=== PATIENT | female | born 1955 | race Caucasian/White ===

== ENCOUNTER 2025-01-29 15:18 | Outpatient (REF) | payer OTHER, SELFPAY ==
--- OUTSIDE RECORDS SUMMARY | 2025-01-29 15:23 | XMS_ITS | Data Portability ---
Author Organization [facility] Home Service Address [address] [place] [address] Assessment Encounter Date Assessment Date Assessment LastModified by Organization Details LastModified Time 09/27/2022 09/27/2022 Patient agreed and verbally consents to this audio and video Telehealth appt via a secure platform [email or web address] Not available 09/27/2022 16:00:05 08/16/2024 08/16/2024 Patient agreed and verbally consents to this audio and video Telehealth appt via a secure platform [email or web address] Not available 08/16/2024 10:56:32 01/17/2025 01/17/2025 Patient agreed and verbally consents to this audio and video Telehealth appt via a secure platform [email or web address] Not available 01/17/2025 11:54:37 Plan of Treatment Reminders Order Date Submit Date Provider Last Modified By Organization Details Last Modified Time Details Appointments NEW PROBLEM 15 2024 02:15P M DR BUTLER Not available Not available Not available Lab None recorded. Referral None recorded. Procedures None recorded. Surgeries None recorded. Imaging XR, foot, 3 or more view 2023 024 [facility], [address] [place] [address], [id number], 07/24/2024 08:20:33 XR, foot, 3 or more view 2023 024 [facility], [address] [place] [address], [id number], 07/24/2024 08:21:17 XR, hip + pelvis, bilateral , 2 view - bilateral hips 2023 024 [facility], [address] [facility], [place], [id number], 07/24/2024 08:19:44 Medication Orders doxycycli ne hyclate 100 mg tablet [address] [facility] #[id number], [address], [place], [id number], 01/17/2025 11:57:17 Medrol (Diallo) 4 mg tablets in a dose pack [address] [facility] #44989, [address], [place], [id number], 01/17/2025 11:57:19 codeine 10 mg-guaife nesin 100 mg/5 mL oral liquid [address] [facility] #[id number], [address], [place], [id number], 01/17/2025 11:57:19 prednison e 10 mg tablet [address] [facility] #60540, [address], [place], [id number], 08/16/2024 10:59:39 codeine 10 mg-guaife nesin 100 mg/5 mL oral liquid [address] [facility] #72996, [address], [place], [id number], 08/16/2024 10:59:44 Augmentin 875 mg-125 mg tablet 2023 024 [email or web address] [facility] #32490, [address], [place], [id number], 01/29/2025 14:18:43 escitalop lalo 5 mg tablet [address] [facility] #46354, [address], [place], [id number], 09/27/2022 16:07:50 lorazepam 0.[address] [facility] #72333, [address], [place], [id number], 09/27/2022 16:07:51 Patient TargetsNo targets recorded. Patient InstructionsNo instructions recorded. Reason for Referral None Reported. Results Created Date Observation Date Name Description Value Unit Range Abnormal Flag Note LastModifiedBy Organization Detail LastModifiedTime 07/23/20 24 07/23/2024 XR, hip + pelvi s, bilat eral, 2 view No observ ation record ed. [facility] [address] [place] [address], [id number], 07/24/2024 12:20:01 07/23/20 24 07/23/2024 XR, foot, 3 or more view No observ ation record ed. [facility] [address] [place], [id number], 07/24/2024 12:20:01 07/23/20 24 07/23/2024 XR, foot, 3 or more view No observ ation record ed. [facility] [address] [place] [address], [id number], 07/24/2024 12:20:01 Result Notes None recorded. Problems Name Problem SNOMED Code Status Onset Date Resolution Date Notes Provider Name and Address Organization Details Recorded Time Essential hypertens ion 57755234 Active 2018 Not Available [facility] 13:16:25 Gastroeso phageal reflux disease 181051465 Active 2018 Not Available [facility] 13:16:25 Steatotic liver disease 772494063 Active 2018 Not Available [facility] 13:16:25 Anxiety disorder 940663421 Active 2022 HARISH MONTEIRO [address] [place], [address], [facility] 3 15:59:30 Anxiety 78185778 Active 2022 HARISH MONTEIRO [address] [place] [address], [address], [facility] 3 15:59:53 Bacterial conjuncti vitis 132635809 Active 2023 HARISH MONTEIRO [address] [place] [address], [address], [facility] 4 10:33:23 Pain of bilateral hip joints 537431222362 80478 Active 2023 HARISH MONTEIRO [address] [place] [address], [address], [facility] 4 10:25:50 Pain in both feet 774955118728 58151 Active 2023 HARISH MONTEIRO [address] [place] [address], [address], [facility] 4 10:28:27 Bilateral osteoarth ritis of feet 473405862628 103 Active 2023 HARISH MONTEIRO [address] [place] [address], [address], [facility] 4 12:21:44 Acute bronchiti s 79196450 Active 2023 HARISH MONTEIRO [address] [place] [address], [address], [facility] 4 10:56:14 Cough 37664670 Active 2023 HARISH MONTEIRO [address] [place] [address], [address], [facility] 4 10:59:41 Acute infective bronchiti s 037279048 Active 2024 HARISH MONTEIRO [address] [place] [address], [address], [facility] 5 11:54:26 Psoriasis 7210000 Active 2024 Jesus Butler, DO [address] [place], [address], [facility] 5 15:08:13 Low back pain 219173526 Active 2024 Jesus Butler, DO [address] [place], [address], [facility] 5 15:09:02 Chronic pain of right upper limb 344335325553 93216 Active 2024 Jesus Butler, DO [address] [place] [address], [address], [facility] 5 15:09:14 Pain of multiple joints 07504885 Active 2024 Jesus Butler, DO [address] [place] [address], [address], [facility] 5 15:11:23 Notes:Right knee medial meni scus Problem Notes None recorded. Procedures Surgical History Date Name Laterality Status Provider Name and Address Organization Details Recorded Time 5 Date of Last Pap Smear completed Jelena Yanez [facility] 08/05/2019 09:07:04 5 Colonoscopy completed Jelena Yanez [facility] 01/22/2019 10:33:16 Imaging Results Imaging Date Name Status [facility]Modified by [facility] Details LastModified Time 07/23/2024 XR, hip + pelvis, bilateral, 2 view completed [facility] [address] [place] [address], [id number], 07/24/2024 12:20:01 07/23/2024 XR, foot, 3 or more view completed [facility] [address] [place] [address], [address], 07/24/2024 12:20:01 07/23/2024 XR, foot, 3 or more view completed [facility] [address] [place] [address], [id number], 07/24/2024 12:20:01 Procedure Notes None recorded. Medical Equipment None Reported. Allergies No known drug allergies Medications Name Sig Start Date Stop Date Status Note LastModified by Organization Details LastModified Time prednisone 10 mg tablet 40 mg x 2 days30 mg x 2 days20 mg x 2 days10 mg x 2 days active Not Available Not Available No t Available oxybutynin chloride ER 10 mg tablet,exte nded release 24 hr Take 1 tablet every day by oral route for 30 days. 11/24 completed Not Available Not Available Not Available tramadol 50 mg tablet Take 1 tablet every 6 hours by oral route for 7 days. 2024 active Not Available Not Available Not Avai lable lorazepam 0.5 mg tablet TAKE 1 TABLET BY MOUTH EVERY DAY NEEDED active Not Available Not Available No t Available erythromyci n 5 mg/gram (0.5 %) eye ointment APPLY 1 CM RIBBON INTO THE LOWER CONJUNCTI DAVIN SAC(S) IN THE AFFECTED EYE(S) BY OPHTHALMI C ROUTE 3 TIMES PER DAY active Not Available Not Available No t Available oxybutynin chloride ER 5 mg tablet,exte nded release 24 hr Take 1 tablet every day by oral route for 30 days. 08/26 completed Not Available Not Available Not Available codeine 10 mg-guaifene sin 100 mg/5 mL oral liquid TAKE 10 ML BY MOUTH EVERY 4 HOURS FOR 7 DAYS NEEDED active Not Available Not Available No t Available methylpredn isolone 4 mg tablets in a dose pack FOLLOW PACKAGE DIRECTION S active Not Available Not Available No t Available lisinopril 40 mg tablet TAKE 1 TABLET BY MOUTH EVERY DAY active Not Available Not Available No t Available fluoxetine 20 mg capsule TAKE 1 CAPSULE BY MOUTH EVERY DAY FOR 30 DAYS active Not Available Not Available No t Available doxycycline hyclate 100 mg tablet TAKE 1 TABLET BY MOUTH TWICE DAILY FOR 10 DAYS DIRECTED active Not Available Not Available No t Available amoxicillin 875 mg-potassiu m clavulanate 125 mg tablet TAKE 1 TABLET BY MOUTH TWICE DAILY 01/29 completed Not Available Not Available Not Available escitalopra m 5 mg tablet TAKE 1 TABLET BY MOUTH EVERY DAY active Not Available Not Available No t Available diclofenac 1 % topical gel APPLY 2 GRAMS TO THE AFFECTED AREA(S) BY TOPICAL ROUTE 4 TIMES PER DAY 2023 active Not Available Not Available Not Avai lable naloxone 4 mg/actuatio n nasal spray ADMINISTE R 1 SPRAY INTO ONE NOSTRIL. CALL 911. REPEAT AFTER 2-3 MIN IF NO OR MINIMAL RESPONSE 01/29 completed Not Available Not Available Not Available Afluria Qd (36 mos up)(PF)60 mcg (15 mcg x4)/0.5 mL IM syringe ADM 0.5ML IM UTD 08/12 completed Not Available Not Available Not Available Vitals Date Recorded Body height Body mass index (BMI) Body weight Heart rate Oxygen saturation Oxygen saturation in Arterial blood by Pulse oximetry Systolic blood pressure Diastolic blood pressure Provider Name and Address Organization Details Last Updated DateTime 4 154.94 cm 24.4 kg/m2 41291.7 7 g 72 /min 100 % 100 % 114 mm[Hg] 78 mm[Hg] Marileemuna Salazar [facility] 4 10:19:20 Date Recorded Body height Body mass index (BMI) Body weight Oxygen saturation Oxygen saturation in Arterial blood by Pulse oximetry Heart rate Systolic blood pressure Diastolic blood pressure Provider Name and Address Organization Details Last Updated DateTime 5 154.94 cm 23.6 kg/m2 39800.0 5 g 96 % 96 % 74 /min 106 mm[Hg] 70 mm[Hg] Radha Honeycutt [facility] 5 14:24:18 Social History Question Answer Notes LastModified by Organizat ion Details LastModified Time Tobacco Smoking Status Former Smoker Not Available [facility] 07/14/2020 03:36:24 What Was The Date Of Your Most Recent Tobacco Screening? 01/29/2025 [email or web address] Information not available 01/29/2025 Sex: Unknown Functional Status None recorded. Mental Status None recorded. Family History Nothing Reported. Medical History No medical history recorded. Gynecological History Statement/Question Response Date of Last Pap Smear 06/11/2015 Obstetrics History GPAL:G 0 P 0 0 0 0 Immunizations Vaccine Type Date Status Note Provider Nam e and Address Organization Details Recorded Time zoster, unspecified formulation 08/14/20 21 completed Jesus Butler DO [address] [facility], [place], [address], [facility] 08/16/2021 07:14:02 Pneumococcal conjugate PCV20, polysaccharide BHE298 conjugate, adjuvant, PF 07/11/20 completed Not Available [facility] 12/16/2022 03:01:06 Influenza, split virus, quadrivalent, preservative 07/11/20 22 completed Ynes cavazos [facility] 07/11/2022 13:47:44 COVID-19, mRNA, LNP-S, PF, 30 mcg/0.3 mL dose 07/11/20 completed Ynes cavazos [facility] 07/11/2022 13:48:42 zoster live 07/15/20 completed Jelena cavazos [facility] 07/16/2019 08:23:47 Influenza, split virus, quadrivalent, preservative 06/11/20 20 completed Jelena cavazos [facility] 06/12/2020 15:35:27 COVID-19 vaccine, vector-nr, rS-Ad26, PF, 0.5 mL 12/27/19 21 completed Radha cavazos [facility] 01/06/2021 15:34:38 COVID-19 vaccine, vector-nr, rS-Ad26, PF, 0.5 mL 12/06/19 21 completed Radha cavazos [facility] 01/06/2021 15:35:04 Past Encounters Encounter ID Performer Location Encounter Start Date Encounter Closed Date Diagnosis/Indication Diagnosis SNOMED-CT Code Diagnosis ICD10 Code Diagnosis Note [id number] DO [facility] [address] [facility],[place] [address] 07/15/2019 09:43:58 07/15/2019 10:17:02 Gastroesophageal reflux disease 802079809 K21.9 prilosec daily with relief Essential hypertension 64751303 I10 well controlled 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 Vitamin D deficiency 347 80321 E55.9 Screening procedure 2012 5006 Z13.9 Body mass index 25-29 - overweight 896487622 Z68.27 Active or passive immunization 324462920 Z23 [id number] DO Raman [facility] [address] [facility], [place] [address] 08/26/2019 10:26:47 08/26/2019 10:53:15 Essential hypertension 96100166 I10 well controlled Gastroesop hageal reflux disease 361350711 K21.9 prilosec daily with relief Steatotic liver disease 968590089 K76.0 excess etoh has cut back and feels better will continue to monitor, repeat labs in february, and do cpe in july as scheduled Urinary bl adder problem 986920928 N32.81 [id number] Jesus Butler [facility] [address] [facility], [facility] [place] [place] [address] 01/06/2021 15:28:37 01/06/2021 15:51:49 Active or passive immunization 667555803 Z23 advised Adult heal th examination 722142784 Z00.00 doing well BP is excellent today Essential hypertension 99765024 I10 BP excellent today Screening for cardiovascular system disease 294447763 Z13.6 [id number] Jesus Butler [facility] [address] [facility], [place] [address] 09/27/2022 14:20:07 09/27/2022 16:15:51 Anxiety 09332110 F41.1 will start on lexapro and ativan PRN for severe panic attackswil l update me on how it is working and keep in touch about how her mood is doing or if she has any questions [id number] Jesus Butler [facility] [address] [facility],[place] [address] 07/23/2024 10:12:14 07/23/2024 10:48:01 Depression screening 062527117 Z13.31 SCREENING NEGATIVE Pain of bi lateral hip joints 2216686261 0082456 M25.551 bilateral hip pain, needs MRI for [facility], needs XR first to attach for orderwill send to [facility] per patient Pain in both feet 936446 7988 6454441 M79.671 bilateral foot painacute onset, no injury or trauma, does have psoriasis, ?psoriatic arthritis [id number] Jesus Butler DO [facility] [address] [facility],[place] [address] 08/16/2024 10:28:50 08/16/2024 11:01:17 Acute bronchitis 78474534 J20.8 start treatment as prescribed update on monday Cough 06695821 R05.1 ?walking pna [id number] Jesus Butler [facility] [address] [facility],[place] [address] 01/17/2025 10:48:58 01/17/2025 14:22:28 Acute infective bronchitis 194026465 J20.8 fu next week for update of symptoms Health Concerns Section Related Observation LastModified by Organization Detai ls LastModified Time None Recorded Concern Status LastModified by Organization Details LastModified Time None Recorded Advance Directives Directive None Recorded Payers Encounter Date Sequence Insurance Name Policy Number Policy Mena Covered Member ID Mena Member ID Guarantor Name 09/27/2022 1 [facility] [id number] 1 Melyssa Stanford [id number] Melyssa Buchanan 07/23/2024 1 [facility] [id number] 1 Melyssa Stanford [id number] Melyssa Buchanan 08/16/2024 1 [facility] [id number] 1 Melyssa Stanford [id number] Melyssa Buchanan 01/17/2025 1 [facility] [id number] 1 Melyssa Stanford [id number] Melyssa Buchanan Notes Date Note Type Note Provider Name and Address Organization Details Recorded Time 3 text/html c/o would like to start on a medication for anxiety tele-med phone callpatient does not appear to be in any acute distress anxiety: the patient reports that she is having a hard-time since her daughter is doing illicit drugs and is now in custody of her 18-mo grandson the patient reports that she feels overwhelmed by the situationdiscussed her grandson and her daughter the patient's daughter has been in and out rehab for awhile HARISH MONTEIRO [address] [facility], [place], [address], [facility] 09/27/2022 16:13:48 4 text/html f/u joint pain the patient has been having bilateral hip pain fro about 25 yearsthe patient reports that it has worsened over the past few years, especially this past year the patient reports that she is having pain in her feethas a h/x of psoriasis the patient reports pain in the heel bilaterally, especially with pressure agreed to XR's bilaterally for feetagreed to XR's bilaterally for hip would like to [facility] hip doc there, needs to MRI for them to see her HARISH MONTEIRO [address] [place], [address], [facility] 07/23/2024 10:46:41 4 text/html c/o URI The patient is participating in this appointment via telemedicine communication with a phone call/video calling service (Doxy)The patient consents to use of these platforms in place of an in-person appointment due to either sick symptoms the patient is presenting with or current office closure due to COVID exposure in order to keep our office staff and patients safe The patient presents to the office today with concerns of sick symptoms including sore throat, constant dry cough, headaches (in the forehead) (feels dull and achey), feels chest congestion mild fever (subjective) no congestion, no chills The symptoms started originally 1 week agoThe patient reports exposure to fam at the institute of livingThe patient symptoms mainly involves the Pertinent comorbidities include n/a The patient symptoms are alleviated by restThe patient symptoms are exacerbated by activity, talking The patient has tested for COVID-19 and the results was negative x 1 HARISH MONTEIRO [address] [place], [address], [facility] 08/16/2024 11:01:02 5 text/html c/o sick symptoms/URI The patient is participating in this appointment via telemedicine communication with a phone call/video calling service (Doxy)The patient consents to use of these platforms in place of an in-person appointment due to either sick symptoms the patient is presenting with or current office closure due to COVID exposure in order to keep our office staff and patients safe The patient presents to the office today with concerns of sick symptoms including productive cough, worse at night when laying flat, chest tightness, fatigue no fever, no chills The symptoms started originally 3 weeks ago, thought it was just allergies but then it never improvedThe patient reports exposure to unknown? no one around her is sick like she is that she is aware ofThe patient symptoms mainly involves the cough, has been 3 weeks without improvement and getting worsecould have started as allergies and then developed into a URI due to the inflammation The patient symptoms are alleviated by rest, sittingThe patient symptoms are exacerbated by laying flat, activity, talking The patient has tested for COVID-19 and the results was negative HARISH MONTEIRO [address] [facility], [place], [address], [place] [facility] 01/17/2025 12:01:05 OBGyn Episode No OBEpisode recorded.
[2025-01-29 18:07] LABS: MANUAL DIFF FLAG NO
[2025-01-29 18:17] LABS: Basophils Percent Auto 0.6 % (0-2); Eosinophils Absolute Auto 0.1 X10*3/uL (0.0-0.4); Hematocrit 34.3 % (37.0-47.0); Hemoglobin 11.7 g/dl (12.0-16.0); Imm Gran Abs Auto 0.01 X10*3/uL (0.00-0.03); Imm Gran Pct Auto 0.2 % (0.0-0.4); Lymphocytes Absolute Auto 2.4 X10*3/uL (1.2-4.9); Lymphocytes Percent Auto 36.6 % (20-40); Mean Corpuscular HGB Conc 34.1 g/dl (31.0-35.0); Mean Corpuscular Volume 85.1 fL (80.0-98.0); Mean Platelet Volume 9.7 fL (9.4-12.3); Monocytes Absolute Auto 0.4 X10*3/uL (0.1-1.2); Monocytes Percent Auto 5.5 % (2-11); Neutrophils Absolute Auto 3.6 x10*3/uL (2.0-8.3); Neutrophils Percent Auto 55.1 % (45-73); Platelet Count 338 X10*3/uL (160-400); Red Blood Count 4.03 X10*6/uL (4.20-5.50); Red Cell Distribution Width 13.6 % (11.0-16.0); White Blood Count 6.6 X10*3/uL (4.8-10.8)
[2025-01-29 18:29] LABS: Rheumatoid Factor < 13.0 IU/mL (<15.0)
[2025-01-29 18:50] LABS: Alanine Aminotransferase 21 U/L (0-31); Albumin Level 4.3 g/dL (3.5-5.0); Alkaline Phosphatase 64 U/L (39-117); Anion Gap 10 (12-20); Aspartate Amino Transferase 22 U/L (5-31); Bilirubin Total 0.2 mg/dL (0.0-1.0); Blood Urea Nitrogen 14 mg/dL (9-16); C Reactive Protein < 0.04 mg/dL (< or = 0.50); Calcium 8.8 mg/dL (8.4-10.2); Carbon Dioxide 25 mmol/L (22-29); Chloride 108 mmol/L (96-108); Estimated Glomerular Filt Rate > 60; Glucose Random 119 mg/dL (60-115); Sodium 139 mmol/L (135-145); Total Protein 6.7 g/dL (6.5-8.0); Uric Acid 3.5 mg/dL (2.4-5.7)
[2025-01-29 19:12] LABS: Erythrocyte Sedimentation Rate 5 MM/HR (0-20)
[2025-01-31 15:14] LABS: Anti Nuclear Antibody Screen NEGATIVE (NEGATIVE)
== END 2025-01-29 15:19 | disposition home or self-care (01) ==
LOC: HO.MANLDS 15:18
PROVIDERS: Visit Provider Internal Medicine
DX: M25.50 Pain in unspecified joint (principal)
CPT/HCPCS: 36415; 80053; 84550; 85025; 85652; 86038; 86140; 86431